=== PATIENT | male | born 1985 | race Two or more races ===

== ENCOUNTER 2017-09-01 17:00 | Emergency (ER) | payer BC ==
[~2017-09-01] VITALS: Ht 185.4 cm; Wt 120.5 kg
[2017-09-01 18:57] VITALS: BP 139/90
== END 2017-09-01 19:02 | disposition home or self-care (01) ==
LOC: ED 18:56
DX: J20.8 Acute bronchitis due to other specified organisms (principal); B96.89 Other specified bacterial agents as the cause of diseases classified elsewhere
CPT/HCPCS: 71046; 99284; J7512